=== PATIENT | male | born 1960 | race African-American/Black ===

== ENCOUNTER 2017-10-15 22:39 | Emergency (ER) | payer SELFPAY ==
[~2017-10-15] VITALS: Ht 200.7 cm; Wt 87.6 kg
[~2017-10-15 22:39] MED LIST: ALBU17I INH; IBUP-1116 PO; SULF1TAB47 PO; Z.0.NO CURRENT MEDS
[2017-10-16 00:09] VITALS: BP 152/93; PULSE 74; RESP 18; TEMP 98.2; O2SAT 98
--- NOTE | 2017-10-16 01:08 | PD ---
HPI Chief Complaint: GI Complaint Time Seen by Provider: 01:06 Travel History International Travel<30 days: No Contact w/Intl Traveler<30days: No Traveled to known affect area: No History of Present Illness HPI The patient is a 57-year-old male that came in mainly because his said she has an STD and he needs to be treated. The patient also complains of nausea and vomiting associated with diarrhea for 1 week. He is getting better as far as his nausea and is not vomiting and no longer has any abdominal pain. The patient mainly wants to be treated for the STD. He denies any penile discharge. He states he just had sex with his yesterday and he knows that it has not been long enough for him to develop any symptoms of STD. PFSH Past Medical History Blood Disorders: No (N) Tetanus Vaccination: > 5 Years Influenza Vaccination: No Social History Alcohol Use: Yes (OCCASSIONAL) Tobacco Use: Yes (1 PPD) Substance Use: No Allergies-Medications (Allergen,Severity, Reaction): Coded Allergies: No Known Allergies (Verified Allergy, Mild, 09/20/17) Uncoded Allergies: NO (Allergy, Unknown, 03/21/03) Reported Meds & Prescriptions Reported Meds & Active Scripts Active Bactrim Ds (Trimethoprim/Sulfamethoxazole) Tab 1 Tab PO BID 10 Days Proventil Mdi (Albuterol Sulfate) 17 Gm Aero 2 Puff INH Q4HPRN Reported Advil 200 Mg Tab (Ibuprofen) 200 Mg Tab 200 Mg PO Q4HPRN No Current Meds (Miscellaneous Medication) Misc Review of Systems Except as stated in HPI: all other systems reviewed are Neg Physical Exam Narrative GENERAL: The patient is alert, oriented 3, mildly dehydrated appearing in no apparent distress. His vital signs show blood pressure 152/93 but are otherwise normal. SKIN: Focused skin assessment warm/dry. HEAD: Atraumatic. Normocephalic. EYES: Pupils equal and round. No scleral icterus. No injection or drainage. ENT: No nasal bleeding or discharge. Mucous membranes pink and moist. NECK: Trachea midline. No JVD. CARDIOVASCULAR: Regular rate and rhythm. No murmur appreciated. RESPIRATORY: No accessory muscle use. Clear to auscultation. Breath sounds equal bilaterally. GASTROINTESTINAL: Abdomen soft, non-tender, nondistended. Hepatic and splenic margins not palpable. No guarding or rebound is present. MUSCULOSKELETAL: No obvious deformities. No clubbing. No cyanosis. No edema. NEUROLOGICAL: Awake and alert. No obvious cranial nerve deficits. Motor grossly within normal limits. Normal speech. PSYCHIATRIC: Appropriate mood and affect; insight and judgment normal. Data Data Last Documented VS Vital Signs Date Time Temp Pulse Resp B/P (MAP) Pulse Ox O2 Delivery O2 Flow Rate FiO2 10/16/17 01:02 16 10/16/17 00:09 98.2 74 152/93 (112) 98 Orders Orders Complete Blood Count With Diff (10/16/17 01:16) Basic Metabolic Panel (Bmp) (10/16/17 01:16) Urinalysis - C+S If Indicated (10/16/17:16) Lipase (10/16/17:16) Ondansetron Inj (Zofran Inj) (10/16/17 01:30) Sodium Chlor 0.9% 1000 Ml Inj (Ns 1000 M (10/16/17 01:30) Ceftriaxone Inj (Rocephin Inj) (10/16/17 01:30) Azithromycin (Zithromax) (10/16/17 01:30) Labs Laboratory Tests Test 10/16/17 01:33 White Blood Count 6.1 TH/MM3 Red Blood Count 4.56 MIL/MM3 Hemoglobin 12.2 GM/DL Hematocrit 37.6 % Mean Corpuscular Volume 82.4 FL Mean Corpuscular Hemoglobin 26.6 PG Mean Corpuscular Hemoglobin Concent 32.3 % Red Cell Distribution Width 13.9 % Platelet Count 314 TH/MM3 Mean Platelet Volume 7.9 FL Neutrophils (%) (Auto) 28.2 % Lymphocytes (%) (Auto) 44.6 % Monocytes (%) (Auto) 13.7 % Eosinophils (%) (Auto) 10.2 % Basophils (%) (Auto) 3.3 % Neutrophils # (Auto) 1.7 TH/MM3 Lymphocytes # (Auto) 2.8 TH/MM3 Monocytes # (Auto) 0.8 TH/MM3 Eosinophils # (Auto) 0.6 TH/MM3 Basophils # (Auto) 0.2 TH/MM3 CBC Comment DIFF FINAL Differential Comment Urine Color YELLOW Urine Turbidity CLEAR Urine pH 6.0 Urine Specific [place] GREATER/EQUAL 1.030 Urine Protein TRACE mg/dL Urine Glucose (UA) NEG mg/dL Urine Ketones TRACE mg/dL Urine Occult Blood NEG Urine Nitrite NEG Urine Bilirubin NEG Urine Urobilinogen 2.0 MG/DL Urine Leukocyte Esterase NEG Urine RBC 0-3 /hpf Urine WBC 0-2 /hpf Urine Squamous Epithelial Cells 0-5 /hpf Urine Bacteria NONE /hpf Microscopic Urinalysis Comment CULT NOT INDICATED Blood Urea Nitrogen 16 MG/DL Creatinine 0.88 MG/DL Random Glucose 93 MG/DL Calcium Level 8.8 MG/DL Sodium Level 137 MEQ/L Potassium Level 3.7 MEQ/L Chloride Level 104 MEQ/L Carbon Dioxide Level 27.0 MEQ/L Anion Gap 6 MEQ/L Estimat Glomerular Filtration Rate 109 ML/MIN Lipase 103 U/L [facility] Medical Decision Making Medical Screen Exam Complete: Yes Emergency Medical Condition: Yes Medical Record Reviewed: Yes Interpretation(s) The CBC is normal except for hemoglobin of 12.2 and hematocrit of 37.6. The basic metabolic profile is normal and the lipase is normal. The urinalysis shows trace ketones and specific gravity 1.030 but is otherwise unremarkable. Cultures not indicated on the urine. Differential Diagnosis Gastritis, gastroenteritis, STD exposure, dehydration Narrative Course The patient likely had gastroenteritis. He did have some diarrhea as well as a nausea and vomiting. His main concern was his STD exposure. He was given Rocephin and Zithromax and he should follow-up with his primary care physician. He is also given Phenergan for his nausea and increase his liquid intake. Diagnosis Primary Impression: Gastroenteritis Additional Impressions: Mild dehydration STD exposure Additional Instructions: Take the Phenergan regularly for nausea. You need to hydrate yourself well. There was evidence that you were dehydrated. Med/Other Pt SpecificInfo: Prescription(s) given Scripts Promethazine (Phenergan) 25 Mg Tablet 25 MG PO Q6H Y for NAUSEA OR VOMITING, #21 TAB 0 Refills Prov: Bubba Black MD 10/16/17 Disposition: 01 DISCHARGE HOME Condition: Stable Bubba Black MD Oct 16, 2017 01:08
[2017-10-16] MEDS ORDERED: AZITHROMYCIN 600 MG TAB PO ONE (01:30)
[2017-10-16] MEDS ORDERED: cefTRIAXone INJ 1,000 MG in SODIUM CHLORIDE 0.9% INJ 100 ML IV ONE (01:30)
[2017-10-16] MEDS ORDERED: ONDANSETRON HCL 4 MG/2 ML VIAL IV ONE (01:30)
[2017-10-16 01:38] LABS: BILIRUBIN, URINE NEG (NEG); BLOOD, URINE NEG (NEG); GLUCOSE,URINE NEG (NEG); KETONE, URINE TRACE mg/dL (NEG); NITRITE,URINE NEG (NEG); URINE COLOR YELLOW (YELLW/STRAW); URINE LEUKOCYTE ESTERASE NEG (NEG)
[2017-10-16 01:39] LABS: AUTOMATED NEUTROPHIL # 1.7 TH/MM3 (1.8-7.7); BASOPHIL # 0.2 TH/MM3 (0-0.2); BASOPHIL % 3.3 % (0.0-2.0); EOSINOPHIL # 0.6 TH/MM3 (0-0.4); EOSINOPHIL % 10.2 % (0.0-4.0); HEMATOCRIT 37.6 % (39.0-51.0); HEMOGLOBIN 12.2 GM/DL (13.0-17.0); LYMPH % 44.6 % (9.0-44.0); LYMPHOCYTE # 2.8 TH/MM3 (1.0-4.8); MEAN CELL VOLUME 82.4 FL (80.0-100.0); MEAN CORPUSCULAR HEMOGLOBIN 26.6 PG (27.0-34.0); MEAN CORPUSCULAR HGB CONC 32.3 % (32.0-36.0); MEAN PLATELET VOLUME 7.9 FL (7.0-11.0); MONO % 13.7 % (0.0-8.0); MONOCYTE # 0.8 TH/MM3 (0-0.9); NEUT % 28.2 % (16.0-70.0); PLATELET COUNT 314 TH/MM3 (150-450); RED BLOOD COUNT 4.56 MIL/MM3 (4.50-5.90); RED CELL DISTRIBUTION WIDTH 13.9 % (11.6-17.2); WHITE BLOOD COUNT 6.1 TH/MM3 (4.0-11.0)
[2017-10-16 01:43] LABS: RBC, URINE 0-3 /hpf (0-3); SQUAMOUS EPITHELIAL CELL URINE 0-5 /hpf (0-5); WBC, URINE 0-2 /hpf (0-5)
[2017-10-16] MEDS: SODIUM CHLOR 0.9% 1000 ML INJ 1,000 ML IV SCH ×2 (01:43→02:00)
[2017-10-16 01:48] LABS: CALCIUM 8.8 MG/DL (8.5-10.1)
[2017-10-16 01:51] LABS: CREATININE 0.88 MG/DL (0.60-1.30)
[2017-10-16] MEDS ORDERED: PROM25TA10 PO (02:15)
[2017-10-16 02:28] VITALS: BP 142/86
== END 2017-10-16 02:30 | disposition home or self-care (01) ==
LOC: PHED 22:39 → PHEDA 10-16 02:23 → UNDOADMOB 10-16 02:23
DX: K52.9 Noninfective gastroenteritis and colitis, unspecified (principal); E86.0 Dehydration; F17.210 Nicotine dependence, cigarettes, uncomplicated; Z20.2 Contact with and (suspected) exposure to infections with a predominantly sexual mode of transmission
CPT/HCPCS: 80048; 81001; 83690; 85025; 96365; 96375; 99284; J0696; J2405; J7030